=== PATIENT | male | born 1945 | race Caucasian/White ===

== ENCOUNTER 2017-07-22 08:30 | Inpatient (IN) | payer MEDICARE, OTHER ==
[2017-07-22] VITALS (9 sets, daily range): BP systolic 150–151; BP diastolic 79–80; PULSE 55–62; RESP 18–22; TEMP 98; O2SAT 98
[~2017-07-22 08:30] MED LIST: ARIC10TA9; ASPI1CHW4 CHEW; DAILTAB43; DEXA2TAB PO; FLAX100013; GARL3CAP; GLUC500C5 PO; LISI-519 PO; ROSU1TAB6 PO; ZANT150T2 PO
[2017-07-22 12:08] LABS: HEMATOCRIT 40.6 % (39.0-51.0); HEMOGLOBIN 14.1 GM/DL (13.0-17.0); MEAN CORPUSCULAR HEMOGLOBIN 31.9 PG (27.0-34.0); MEAN CORPUSCULAR HGB CONC 34.7 % (32.0-36.0); MEAN PLATELET VOLUME 6.6 FL (7.0-11.0); PLATELET COUNT 215 TH/MM3 (150-450); RED BLOOD COUNT 4.41 MIL/MM3 (4.50-5.90); RED CELL DISTRIBUTION WIDTH 13.5 % (11.6-17.2); WHITE BLOOD COUNT 9.3 TH/MM3 (4.0-11.0)
[2017-07-22 12:17] LABS: PROTHROMBIN TIME - PATIENT 10.4 SEC (9.8-11.6)
[2017-07-22 12:31] LABS: BICARBONATE 30.3 MEQ/L (21.0-32.0); CALCIUM 9.1 MG/DL (8.5-10.1); CREATININE 0.83 MG/DL (0.60-1.30)
--- NOTE | 2017-07-22 12:52 | RADRPT ---
EXAM DATE/TIME: 07/22/2017 11:31 [facility] COMPARISON: No previous studies available for comparison. INDICATIONS : Evaluate for pneumonia, pneumothorax, or communicable disease. Pre op for craniotomy. MEDICAL HISTORY : Hypertension. Cardiac arrhythmia. Alzheimers. SURGICAL HISTORY : Appendectomy. ENCOUNTER: Initial ACUITY: 1 day PAIN SCORE: 0/10 LOCATION: Bilateral chest FINDINGS: The heart is mildly prominent. The pulmonary vascular and is normal. The lungs are clear. CONCLUSION: 1. Mild cardiomegaly. 2. No acute focal infiltrate or pulmonary vascular congestion. Paok Gil MD on July 22, 2017 at 12:49 Board Certified Radiologist. This report was verified electronically.
[2017-07-22] MEDS ORDERED: MIDAZOLAM HCL 2 MG/2 ML VIAL ONE (14:51)
[2017-07-22] MEDS ORDERED: fentaNYL CITRATE 250 MCG/5 ML AMP ONE (14:52)
[2017-07-22] MEDS ORDERED: PILL SPLITTER OTHER PRN (15:00)
[2017-07-22] MEDS ORDERED: IODIXANOL 320 MG/ML 50 ML VIAL (for RAD SPEC) I-ARTERIAL ONE (15:51)
--- NOTE | 2017-07-22 16:20 | RADRPT ---
EXAM DATE/TIME: 07/22/2017 14:24 [facility] COMPARISON: No previous studies available for comparison. INDICATIONS : Patient with meningioma in need of cerebral angiogram. MEDICAL HISTORY : HTN, HLD, Diabetes, Cardiac arrhythmias, BPH, Alzheimers SURGICAL HISTORY : Appendectomy, Right wrist surgery, Clavicle repair ENCOUNTER: Initial ACUITY: > 1 year PAIN SCORE: 0/10 FLUORO TIME: 8.6 minutes IMAGE SERIES: 9 ACCESS SITE: Right Femoral artery SEDATION TIME: 30 minutes CONTRAST: 50 cc Visipaque (iodixanol) MEDICATION(S): 1.) 2 mg midazolam (Versed) IV 2.) 150 mcg fentanyl (Sublimaze) IV DEVICE(S): 1.) Right common femoral artery Syvek pad PROCEDURE : 1. Ultrasound-guided puncture of the access site. 2. Conscious sedation with continuous EKG and Oximetry monitoring. 3. Angiography of the right internal carotid artery 4. Angiography of the right external carotid artery 5. Angiography of the left internal carotid artery 6. Angiography of the left external carotid artery The risks, benefits and alternatives to the procedure were explained and verbal and written consent w as obtained. The site was prepped in sterile fashion. Full sterile technique was used, including ca p, mask, sterile gloves and gown and a large sterile sheet. Hand hygiene and 2% chlorhexidine and/or betadine/alcohol prep was utilized per protocol for cutaneous antisepsis. Sterile gel and sterile p robe cover were utilized for ultrasound guidance. The skin and subcutaneous tissues were infiltrated with local anesthetic solution. With ultrasound and fluoroscopic guidance the selected artery was punctured and a vascular sheath was placed There is no feeding from the right side. Examination of the left side demonstrates feeding from both the internal and external circulation. The external circulation provides flow via neovascularity from the middle meningeal artery. The majority of the flow arises from the internal carotid circulation w ith neovascularity or feeding from hypertrophied lenticulostriate branches. Secondary to the blood fl ow and after consultation with Dr. Trevino embolization was not performed The puncture site was closed with manual pressure and hemostasis was obtained. The patient tolerated the procedure well and there were no complications. Conscious sedation was performed with the prescribed dosages and duration as above in the presence of an independent trained radiology nurse to assist in the monitoring of the patient. EKG and oximetry remained stable throughout the procedure. CONCLUSION: 1. Extensive neovascularity arising from the left side most prominently from the internal carotid art miguel angel but also from the external carotid artery. 2. Embolization was not performed Leonard Hadley MD on July 22, 2017 at 16:12 Board Certified Radiologist. This report was verified electronically.
--- NOTE | 2017-07-22 17:13 | PD.RAD ---
Post Procedure Progress Note Pre Procedure Diagnosis: (1) Meningioma Post Procedure Diagnosis: (1) Meningioma Procedure Date: Jul 22, 2017 Supervising Radiologist: Leonard Hadley Proceduralist/Assist: Nicolas Godoy RT(R), RT Dustin(R) Anesthesia: Conscious Sedation Plan of Activity Patient to Unit: Nursing Unit Patient Condition: Good See PACS Report for procedural detail/treatment Vascular-Arterial Procedure Procedure 1 Procedure Site: Cerebral Procedure(s): Angiogram Access Access Site(s): Right Femoral Artery Closure Site(s): Right manual pressure Leonard Hadley MD Jul 22, 2017 17:13
[2017-07-22] MEDS ORDERED: ACETAMINOPHEN 325 MG TAB PO PRN (17:15)
[2017-07-22] MEDS ORDERED: oxyCODONE/ACETAMINOPHEN 5 MG/325 MG TAB PO PRN (17:15)
--- NOTE | 2017-07-22 20:27 | HHI.HP ---
[facility] Service Neurosurgery Primary Care Physician Yosvany Alcaraz MD Chief Complaint: Mental status changes History of Present Illness 72-year-old male recently presented to neurosurgery office 07/09/17 with a history of one-2 years of slow steady decline in speech and comprehension including word finding deficit and difficulty with object naming. No definite slurred speech. He has trouble with complex problem solving. Also recent and remote memory loss. He complains of mild dizziness without definite vertigo. His states that over the past 2 or 3 days his gait has become quite a bit worse and she is concerned that he will fall. He is also having further progression of confusion and expressive speech difficulty over the past 2 or 3 days. 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 Review of Systems ROS Limitations: Altered Mental Status Constitutional: COMPLAINS OF: Dizziness, DENIES: Change in appetite Eyes: DENIES: Blurred vision, Diplopia, Vision loss Ears, nose, mouth, throat: DENIES: Hearing loss, Vertigo Respiratory: COMPLAINS OF: Shortness of breath Cardiovascular: COMPLAINS OF: Chest pain, Palpitations Gastrointestinal: COMPLAINS OF: Abdominal pain, Nausea Genitourinary: COMPLAINS OF: Urinary incontinence Musculoskeletal: DENIES: Joint pain Hematologic/lymphatic: DENIES: Bruising Neurologic: COMPLAINS OF: Abnormal gait, DENIES: Headache Psychiatric: COMPLAINS OF: Confusion Past Family Social History Allergies: Coded Allergies: trazodone (Verified Allergy, Unknown, 07/09/17) Past Medical History Cataracts Cardiac arrhythmia Hypertension Hyperlipidemia Past Surgical History Appendectomy Right wrist surgery Reported Medications Reported Meds & Active Scripts Active Zantac (Ranitidine HCl) 150 Mg Tab 150 Mg PO BID Dexamethasone 2 Mg Tab 2 Mg PO BID Reported Rosuvastatin (Rosuvastatin Calcium) 10 Mg Tab 10 Mg PO HS Daily Value (Multivitamin) 1 Each Tablet Lisinopril 5 Mg Tab 5 Mg PO DAILY Glucosamine (Glucosamine Sulfate) 500 Mg Cap 500 Mg PO DAILY Garlic 1,500 Mg Capsule Flax Seed Oil (Flaxseed (Linseed)) 1,000 Mg Cap Aricept (Donepezil HCl) 10 Mg Tablet Aspirin 81 Low Dose (Aspirin) 81 Mg Chew 81 Mg CHEW DAILY Family History Negative cancer, cardiac disease Social History Does not smoke cigarettes Social alcohol use Physical Exam Vital Signs Vital Signs Date Time Temp Pulse Resp B/P (MAP) Pulse Ox O2 Delivery O2 Flow Rate FiO2 07/22/17 18:27 56 150/80 (103) 07/22/17 18:00 62 07/22/17 17:57 55 150/80 (103) 07/22/17 17:42 98.0 55 22 151/79 (103) 98 07/22/17 17:42 55 07/22/17 17:17 98.0 55 18 151/79 (103) 98 07/22/17 16:00 56 07/22/17 12:00 55 Physical Exam GENERAL: This is a well-nourished, well-developed patient, no apparent distress. SKIN: No abrasions, contusion, rash noted. Skin warm and dry. HEAD: Atraumatic. Normocephalic. No temporal or scalp tenderness. EYES: Sclerae are clear and nonicteric ENT: No facial edema or ecchymosis. No periorbital edema. No CSF otorrhea or rhinorrhea. No palpable facial fracture or deformity. NECK: Trachea midline. No cervical spine tenderness. CARDIOVASCULAR: Regular rate and rhythm without murmurs, gallops, or rubs. RESPIRATORY: Clear to auscultation. Breath sounds equal bilaterally. No wheezes , rales, or rhonchi. GASTROINTESTINAL: Abdomen soft, non-tender, nondistended. No hepato-splenomegaly , or palpable masses. No guarding. MUSCULOSKELETAL: Extremities without cyanosis, or edema. No joint tenderness, or edema noted. No calf tenderness. Dorsalis pedis pulses 2+ bilateral NEUROLOGICAL: Awake and alert Oriented X 3 Speech is at least mildly dysarthric Has significant difficulty with expressive speech deficit. Appears to have difficulty coordinating his thought processes Unable to accurately determine recent and remote memory, but appears significantly impaired Follows a few simple commands Pupils are equal and reactive to accommodation. Extra-ocular movements, visual raygoza to confrontation, facial sensorimotor, tongue, palate, sternocleidomastoid testing, hearing to finger rub testing, and bilateral shoulder shrug are all intact. Sensation is intact to light touch in all extremities Strength normal major flexion and extension groups all extremities Dalila's absent bilaterally No ankle clonus Plantar responses absent bilateral Fine motor movements intact upper extremities Laboratory Laboratory Tests Test 07/22/17 11:36 07/22/17 13:00 White Blood Count 9.3 Red Blood Count 4.41 Hemoglobin 14.1 Hematocrit 40.6 Mean Corpuscular Volume 92.0 Mean Corpuscular Hemoglobin 31.9 Mean Corpuscular Hemoglobin Concent 34.7 Red Cell Distribution Width 13.5 Platelet Count 215 Mean Platelet Volume 6.6 Prothrombin Time 10.4 Prothromb Time International Ratio 1.0 Activated Partial Thromboplast Time 24.3 Blood Urea Nitrogen 18 Creatinine 0.83 Random Glucose 96 Calcium Level 9.1 Sodium Level 139 Potassium Level 3.8 Chloride Level 104 Carbon Dioxide Level 30.3 Anion Gap 5 Estimat Glomerular Filtration Rate 91 Nasal Screen MRSA (PCR) MRSA NOT DETECTED Result Diagram: 07/22/17 1136 07/22/17 1136 Imaging Last Impressions Chest X-Ray 07/22/17 0000 Signed Impressions: Service Date/Time: Saturday, July 22, 2017 11:31 - CONCLUSION: 1. Mild cardiomegaly. 2. No acute focal infiltrate or pulmonary vascular congestion. Pako Gil MD Cerebral Arteriogram 07/22/17 0000 Signed Impressions: Service Date/Time: Saturday, July 22, 2017 14:24 - CONCLUSION: 1. Extensive neovascularity arising from the left side most prominently from the internal carotid artery but also from the external carotid artery. 2. Embolization was not performed MD Lorie Copelandi VTE Risk Assessment Caprini VTE Risk Assessment: No/Low Risk (score <= 1) VTE Pharm Contraindication: Intracranial lesions Caprini Risk Assessment Model Point Value = 1 Point Value = 2 Point Value = 3 Point Value = 5 Age 41-60 Minor surgery BMI > 25 kg/m2 Swollen legs Varicose veins or History of unexplained or recurrent spontaneous Oral contraceptives or hormone replacement Sepsis (< 1 month) Serious lung disease, including pneumonia (< 1 month) Abnormal pulmonary function Acute myocardial infarction Congestive heart failure (< 1 month) History of inflammatory bowel disease Medical patient at bed rest Age 61-74 Arthroscopic surgery Major open surgery (> 45 min) Laparoscopic surgery (> 45 min) Malignancy Confined to bed (> 72 hours) Immobilizing plaster cast Central venous access Age >= 75 History of VTE Family history of VTE Factor V Leiden Prothrombin [id number] Lupus anticoagulant Anticardiolipin antibodies Elevated serum homocysteine Heparin-induced thrombocytopenia Other congenital or acquired thrombophilia Stroke (< 1 month) Elective arthroplasty Hip, pelvis, or leg fracture Acute spinal cord injury (< 1 month) Prophylaxis Regimen Total Risk Factor Score Risk Level Prophylaxis Regimen 0-1 Low Early ambulation 2 Moderate Order ONE of the following: *Sequential Compression Device (SCD) *Heparin 5000 units SQ BID 3-4 Higher Order ONE of the following medications: *Heparin 5000 units SQ TID *Enoxaparin/Lovenox 40 mg SQ daily (WT < 150 kg, CrCl > 30 mL/min) *Enoxaparin/Lovenox 30 mg SQ daily (WT < 150 kg, CrCl > 10-29 mL/min) *Enoxaparin/Lovenox 30 mg SQ BID (WT < 150 kg, CrCl > 30 mL/min) AND/OR *Sequential Compression Device (SCD) 5 or more Highest Order ONE of the following medications: *Heparin 5000 units SQ TID (Preferred with Epidurals) *Enoxaparin/Lovenox 40 mg SQ daily (WT < 150 kg, CrCl > 30 mL/min) *Enoxaparin/Lovenox 30 mg SQ daily (WT < 150 kg, CrCl > 10-29 mL/min) *Enoxaparin/Lovenox 30 mg SQ BID (WT < 150 kg, CrCl > 30 mL/min) AND *Sequential Compression Device (SCD) Assessment and Plan Assessment and Plan Impression: 1. Large approximate 6.5 x 6.5 cm lesion most consistent with medial sphenoid wing-planum sphenoidale meningioma Plan: Patient admitted for cerebral angiogram for possible embolization prior to surgical resection. Review of the angiogram with neuroradiology of the study indicates extensive vascularity from both internal carotid greater than external carotid artery, primarily lenticulostriate branches which are markedly dilated. Primary neuroradiology, patient felt to be at significant increased risk for attempted embolization and recommendation made for consideration of transfer to tertiary care center for serial neurovascular evaluation . This is been discussed with the patient's this evening and she is in agreement with possible transfer directly to tertiary care center. She states that he has become quite a bit worse in the past 2 or 3 days, unsteady with ambulation and becoming more agitated and confused with progressive speech deficit. August Trevino MD Jul 22, 2017 20:27
[2017-07-22] MEDS: FAMOTIDINE 20 MG TAB PO SCH (21:41)
[2017-07-22] MEDS: DEXAMETHASONE 4 MG TAB PO SCH (21:41)
[2017-07-23] VITALS (9 sets, daily range): PULSE 52–62
[2017-07-23] MEDS ORDERED: LISINOPRIL 5 MG TAB PO SCH (09:00)
[2017-07-23] MEDS: DEXAMETHASONE 4 MG TAB PO SCH (09:18)
[2017-07-23] MEDS: FAMOTIDINE 20 MG TAB PO SCH (09:19)
--- NOTE | 2017-07-23 09:34 | HHI.NSPN ---
(Nato Evans) History Chief Complaint: None (Nato Evans) Interval History 07/22: 72-year-old male recently presented to neurosurgery office 07/09/17 with a history of one-2 years of slow steady decline in speech and comprehension including word finding deficit and difficulty with object naming. No definite slurred speech. He has trouble with complex problem solving. Also recent and remote memory loss. He complains of mild dizziness without definite vertigo. His states that over the past 2 or 3 days his gait has become quite a bit worse and she is concerned that he will fall. He is also having further progression of confusion and expressive speech difficulty over the past 2 or 3 days. 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 07/23: The patient was initially seen up and about in the room by himself. He went to the bathroom and brushed his teeth. When seen he was sitting in the chair and had no complaints. He was without any change in his neurological status. (Nato Evans) Exam Results 07/21/17 07/21/17 07/22/17 07/22/17 07/23/17 07/23/17 06:00 18:00 06:00 18:00 06:00 18:00 Intake Total 100 ml 240 ml Output Total 1000 ml Balance 100 ml -760 ml Intake Oral 240 ml IV Total 100 ml Output Urine Total 1000 ml # Bowel Movements 0 Vital Signs Date Time Temp Pulse Resp B/P (MAP) Pulse Ox O2 Delivery O2 Flow Rate FiO2 07/23/17 06:00 54 07/23/17 04:00 54 07/23/17 02:00 52 07/23/17 00:00 52 07/22/17 22:00 58 07/22/17 20:00 60 07/22/17 19:00 99 Room Air 07/22/17 18:27 56 150/80 (103) 07/22/17 18:00 62 07/22/17 17:57 55 150/80 (103) 07/22/17 17:42 98.0 55 22 151/79 (103) 98 07/22/17 17:42 55 07/22/17 17:17 98.0 55 18 151/79 (103) 98 07/22/17 16:00 56 07/22/17 12:00 55 (Nato Evans) Physical Examination GENERAL: Awake & alert, readily interacts, affect normal, no apparent distress. HEENT: Normocephalic, atraumatic. PERRLA 3 mm brisk, EOMI. MMM & pink, tongue midline to protrusion. MUSCULOSKELETAL: PACHECO spontaneously, NTTP, no evident clubbing or deformity. NEUROLOGICAL: AAOx3. Speech is clear & mildly dysarthric, some expressive aphasia Follows simple commands. CN II-XII appear grossly intact. Sensation is intact to light touch in all extremities. Motor strength is 5/5 to all major flexion and extension groups to all extremities. (Nato Evans) Lab, Micro, Other Results Recent Impressions Chest X-Ray 07/22/17 0000 Signed Impressions: Service Date/Time: Saturday, July 22, 2017 11:31 - CONCLUSION: 1. Mild cardiomegaly. 2. No acute focal infiltrate or pulmonary vascular congestion. Pako Gil MD Cerebral Arteriogram 07/22/17 0000 Signed Impressions: Service Date/Time: Saturday, July 22, 2017 14:24 - CONCLUSION: 1. Extensive neovascularity arising from the left side most prominently from the internal carotid artery but also from the external carotid artery. 2. Embolization was not performed Leonard Hadley MD Laboratory Tests Test 07/22/17 11:36 07/22/17 13:00 White Blood Count 9.3 TH/MM3 Red Blood Count 4.41 MIL/MM3 Hemoglobin 14.1 GM/DL Hematocrit 40.6 % Mean Corpuscular Volume 92.0 FL Mean Corpuscular Hemoglobin 31.9 PG Mean Corpuscular Hemoglobin Concent 34.7 % Red Cell Distribution Width 13.5 % Platelet Count 215 TH/MM3 Mean Platelet Volume 6.6 FL Prothrombin Time 10.4 SEC Prothromb Time International Ratio 1.0 RATIO Activated Partial Thromboplast Time 24.3 SEC Blood Urea Nitrogen 18 MG/DL Creatinine 0.83 MG/DL Random Glucose 96 MG/DL Calcium Level 9.1 MG/DL Sodium Level 139 MEQ/L Potassium Level 3.8 MEQ/L Chloride Level 104 MEQ/L Carbon Dioxide Level 30.3 MEQ/L Anion Gap 5 MEQ/L Estimat Glomerular Filtration Rate 91 ML/MIN Nasal Screen MRSA (PCR) MRSA NOT DETECTED (Nato Evans) Medical Decision Making Impression and Plan Impression: 1. Large approximate 6.5 x 6.5 cm lesion most consistent with medial sphenoid wing-planum sphenoidale meningioma Review of the angiogram with Neuroradiology of the study indicates extensive vascularity from both internal carotid greater than external carotid artery, primarily lenticulostriate branches which are markedly dilated. Neuroradiology felt the patient to be at risk for attempted embolisation and recommends transfer to tertiary care. Patient is doing well and remains neurologically intact w/o change. Plan: Discussed plan of care with patient & Nursing. Neuro checks. Stat CT brain for any decrease in neuro status. Mechanical DVT prophylaxis. Hold pharmacologic DVT prophylaxis. Diet as tolerated. Mobilise patient w/assistance as needed. May shower w/assistance. Plan to transfer to neurovascular tertiary care centre for serial neurovascular evaluation. (Nato Evans) Attending Statement The exam, history, and the medical decision-making described in the above note were completed with the assistance of the mid-level provider. I reviewed and agree with the findings presented. I attest that I had a [id number] encounter with the patient on the same day, and personally performed and documented my assessment and findings in the medical record. Patient remains awake and alert. Persistent cognitive dysfunction, difficulty with expressive speech and coordination of thought processes. Continued with some gait unsteadiness. Patient's states that his cognitive dysfunction and speech have significantly declined in the past to-3 days. Transfer initiated to [facility] with discussion with Dr. Holland who excepts for transfer. (August Trevino MD) Nato Evans Jul 23, 2017 09:34 August Trevino MD Jul 23, 2017 19:27
--- NOTE | 2017-07-23 15:44 | HHI.DCPOC ---
Discharge Care Plan Your Health Problems Are: Difficulty with ADL Difficulty with Speech Goals to Promote Your Health * To prevent worsening of your condition and complications * To maintain your health at the optimal level Directions to Meet Your Goals Take your medications as prescribed Follow your dietary instruction Follow activity as directed Keep your appointments as scheduled Take your immunizations and boosters as scheduled If your symptoms worsen call your PCP, if no PCP go to Urgent Care Center or Emergency Room Smoking is Dangerous to Your Health. Avoid second hand smoke Call the 24-hour hour crisis hotline for domestic abuse at August Trevino MD Jul 23, 2017 15:44
--- NOTE | 2017-07-23 15:48 | HHI.DS ---
Discharge Summary Admission Date Jul 22, 2017 at 10:31 Discharge Date: Jul 23, 2017 Admitting Diagnosis Large left sphenoid wing meningioma. Progressive altered mental status (1) Meningioma Diagnosis: Principal ICD Code: D32.9 - Benign neoplasm of meninges, unspecified Procedures Cerebral angiogram 07/22/2017 Brief History 72-year-old male recently presented to neurosurgery office 07/09/17 with a history of one-2 years of slow steady decline in speech and comprehension including word finding deficit and difficulty with object naming. No definite slurred speech. He has trouble with complex problem solving. Also recent and remote memory loss. He complains of mild dizziness without definite vertigo. His states that over the past 2 or 3 days his gait has become quite a bit worse and she is concerned that he will fall. He is also having further progression of confusion and expressive speech difficulty over the past 2 or 3 days. 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 CBC/BMP: 07/22/17 1136 07/22/17 1136 Significant Findings Laboratory Tests Test 07/22/17 11:36 07/22/17 13:00 Red Blood Count 4.41 MIL/MM3 (4.50-5.90) Mean Platelet Volume 6.6 FL (7.0-11.0) Imaging Last Impressions Chest X-Ray 07/22/17 0000 Signed Impressions: Service Date/Time: Saturday, July 22, 2017 11:31 - CONCLUSION: 1. Mild cardiomegaly. 2. No acute focal infiltrate or pulmonary vascular congestion. Pako Gil MD Cerebral Arteriogram 07/22/17 0000 Signed Impressions: Service Date/Time: Saturday, July 22, 2017 14:24 - CONCLUSION: 1. Extensive neovascularity arising from the left side most prominently from the internal carotid artery but also from the external carotid artery. 2. Embolization was not performed Leonard Hadley MD Hospital Course 72-year-old male with progressive decline in mental status with increasing confusion, speech difficulty, gait difficulty. Underwent MRI brain as an outpatient which revealed an approximately 6.5 x 6.5 x 5 cm meningioma arising at the region of the medial left sphenoid wing. Significant mass effect. Patient admitted for preoperative embolization of the neoplasm on 07/22/2017. Due to concern regarding potential for vascular complication and neurologic deficit with embolization, procedure not completed per interventional radiology. Due to inability of interventional radiology to perform embolization on large highly vascular neoplasm, transferred to tertiary care center advised family and they agreed for transfer to [facility] on 07/23/2017. Pt Condition on Discharge: Stable Discharge Disposition: Trnsfr to Other Facility Discharge Instructions DIET: Follow Instructions for: Nothing By Mouth ACTIVITIES You can perform: Weight Bearing As Sofya Continued Medications: Dexamethasone (Dexamethasone) 2 Mg Tab 2 MG PO BID for Control Inflammation, #30 TAB 0 Refills Donepezil HCl (Aricept) 10 Mg Tablet Lisinopril (Lisinopril) 5 Mg Tab 5 MG PO DAILY for Blood Pressure Management, #30 TAB 0 Refills Multivitamin (Daily Value) 1 Each Tablet Ranitidine (Zantac) 150 Mg Tab 150 MG PO BID for Reduce Stomach Acid, #60 TAB 0 Refills Discontinued Medications: Aspirin (Aspirin 81 Low Dose) 81 Mg Chew 81 MG CHEW DAILY, #30 TAB Flaxseed (Linseed) (Flax Seed Oil) 1,000 Mg Cap Garlic (Garlic) 1,500 Mg Capsule Glucosamine (Glucosamine) 500 Mg Cap 500 MG PO DAILY for Herbal Supplements, CAP 0 Refills Rosuvastatin (Rosuvastatin) 10 Mg Tab 10 MG PO HS for Cholesterol Management, TAB 0 Refills August Trevino MD Jul 23, 2017 15:48
--- NOTE | 2017-07-24 23:54 | EKG ---
Date Performed: 07/22/2017 Time Performed: 13:41:52 PTAGE: 72 years EKG: SINUS BRADYCARDIA MARKED LEFT AXIS DEVIATION INCOMPLETE RIGHT BUNDLE BRANCH BLOCK ABNORMAL ECG NO PREVIOUS TRACING DOCTOR: Nolan Weiss Interpretating Date/Time 07/24/2017 23:53:30
== END 2017-07-23 18:05 | disposition short-term general hospital (02) | DRG 55 ==
LOC: EDSTATUS 08:30 → N03A 10:31 → EDSTATUS 07-23 08:30 → EDUNIT# 07-27 08:30
PROVIDERS: ADMIT Neurological Surgery; ATTEND Neurological Surgery
PROC: B318YZZ Fluoroscopy of Bilateral Internal Carotid Arteries using Other Contrast (ICD-10-PCS; principal; 2017-07-22)
PROC: B31CYZZ Fluoroscopy of Bilateral External Carotid Arteries using Other Contrast (ICD-10-PCS; 2017-07-22)
DX: D32.0 Benign neoplasm of cerebral meninges (principal); I11.9 Hypertensive heart disease without heart failure; R41.3 Other amnesia; R41.82 Altered mental status, unspecified; E78.5 Hyperlipidemia, unspecified; Z53.09 Procedure and treatment not carried out because of other contraindication
CPT/HCPCS: 36223; 36224; 71045; 76937; 80048; 85027; 85610; 85730; 87641; 93005; 99152; 99153; C1769; C1887; C1894; J2250; J3010; J8540; Q9967